=== PATIENT | female | born 1960 | race Caucasian/White ===

== ENCOUNTER 2021-12-10 13:36 | Emergency (ER) | payer MEDICARE, SELFPAY | END 2021-12-10 14:20 | disposition left against medical advice (07) | PROVIDERS: Emergency Provider Registered Nurse; PCP Family Medicine | DX: Z53.21 Procedure and treatment not carried out due to patient leaving prior to being seen by health care provider (principal) | CPT/HCPCS: 99199 ==

== ENCOUNTER 2021-12-14 12:35 | Emergency (ER) | payer MEDICARE, SELFPAY ==
[2021-12-14 12:40] VITALS: BP 145/68; PULSE 115; RESP 20; TEMP 36.8; O2SAT 96
--- NOTE | 2021-12-14 13:01 | ED.URI ---
HPI - URI/Sore Throat General Chief Complaint: Upper Respiratory Infection Stated Complaint: needs breathing treatment Time Seen by Provider: 12/14/21 13:02 Source: patient Mode of arrival: ambulatory Limitations: no limitations History of Present Illness HPI Narrative: Ms. Crump is a 61-year-old female patient presenting to the clinic today with complaints of chest congestion. She reports she was diagnosed with RSV on December 05, 2021. She reports over the last day or 2 she has become more short of breath with chest congestion. She does have a history of COPD. States that her PCP sent her in a prescription for some prednisone 2 days ago and she has been taking this but does not feel as though she can get the mucus up and is requesting a nebulizer treatment in the office today. Related Data Home Medications Medication Instructions Recorded Confirmed albuterol sulfate 90 mcg/actuation inhalation 12/14/21 aerosol inhaler alprazolam 0.25 mg tablet mg 12/14/21 fluticasone fur. 100 mcg-umeclid inhalation 12/14/21 62.5 mcg-vilant 25 mcg inhalat.powder (Trelegy Ellipta) hydrocodone 7.5 mg-acetaminophen tablet 12/14/21 325 mg tablet metformin 1,000 mg tablet mg 12/14/21 montelukast 10 mg tablet mg 12/14/21 prednisone 20 mg tablet mg 12/14/21 trazodone 50 mg tablet mg 12/14/21 Allergies Allergy/AdvReac Type Severity Reaction Status Date / Time tetracycline Allergy Intermediate Unknown Verified 12/14/21 13:06 codeine Allergy Unknown Nausea Verified 12/14/21 13:06 Review of Systems Review of Systems: Pertinent positives per HPI. Patient denies any fever, chills, rash, headache, visual changes, dizziness, sore throat, shortness of breath, chest pain, palpitations, nausea, vomiting, diarrhea, constipation, abdominal pain, or any urinary issues. PMFSH Comments At the time of my signature, I reviewed and agree with the nursing past medical, surgical, social, and family history. There is no relevant family history pertinent to the patient complaint. Exam Narrative: General: Well-developed, well nourished, in no apparent distress Head: Normocephalic, atraumatic Eyes: Pupils equally round and reactive to light bilaterally, EOM intact, sclera and conjunctive clear, no discharge, lids normal Ears: TMs intact and clear, ear canals clear, no drainage, grossly hearing normal. Nose: Nares patent, no discharge, no inflammation, no sinus tenderness. Mouth: Oropharynx without lesions or masses, good dentition, MMM. Neck: Supple, trachea midline, no enlargement of anterior or posterior cervical nodes, no thyroid masses or goiter palpable. Cardio: Regular rate and rhythm, s1 and s2 normal, no murmur appreciated. Resp: Lung sounds diminished with expiratory wheezing, no rhonchi, rales, or rubs Course Course Emergency Course: Portions of this record may have been created with voice recognition software. Level of Care: Express Care Visit Vital Signs Vital signs: Vital Signs Temperature 36.8 C 12/14/21 12:40 Pulse Rate 115 H 12/14/21 12:40 Respiratory Rate 20 12/14/21 12:40 Blood Pressure 145/68 H 12/14/21 12:40 Pulse Oximetry 96 12/14/21 12:40 Oxygen Delivery Room Air 12/14/21 12:40 Temperature 36.8 C 12/14/21 12:40 Pulse Rate 115 H 12/14/21 12:40 Respiratory Rate 20 12/14/21 12:40 Blood Pressure 145/68 H 12/14/21 12:40 Pulse Oximetry 96 12/14/21 12:40 Oxygen Delivery Room Air 12/14/21 12:40 Vital signs reviewed MDM - URI/Sore Throat MDM Narrative Medical decision making narrative: At the time of visit patient was resting comfortably in the chair. She is wearing O2 at 2 L per nasal cannula. She is able to speak in full sentences. She has a nonproductive cough with expiratory wheezing and diminished breath sounds. Offered chest x-ray and patient declines at this time. She only is requesting a breathing treatment in the clinic today. Handheld neb treatment di
[2021-12-14] MEDS: IPRATROPIUM BR 0.02% INH SOLN 0.5 MG/2.5 ML VIAL INHALATION (13:25)
[2021-12-14] MEDS: ALBUTEROL SULFATE NEB 2.5 MG/3 ML INH INHALATION (13:25)
== END 2021-12-14 14:10 | disposition home or self-care (01) ==
PROVIDERS: Emergency Provider Nurse Practitioner Family; PCP Family Medicine
DX: J44.1 Chronic obstructive pulmonary disease with (acute) exacerbation (principal); B97.4 Respiratory syncytial virus as the cause of diseases classified elsewhere; G47.30 Sleep apnea, unspecified; E11.9 Type 2 diabetes mellitus without complications; L40.9 Psoriasis, unspecified; N80.9 Endometriosis, unspecified; F41.9 Anxiety disorder, unspecified; F32.A Depression, unspecified
CPT/HCPCS: 99213; G0463

== ENCOUNTER 2022-01-09 11:53 | Emergency (ER) | payer MEDICARE, SELFPAY ==
[2022-01-09 11:59] VITALS: BP 140/64; PULSE 101; RESP 20; TEMP 36.6; O2SAT 91
--- NOTE | 2022-01-09 12:42 | ED.GENADULT ---
HPI - General Adult General Chief complaint: Upper Respiratory Infection Stated complaint: cough fever sore throat Source: patient Mode of arrival: ambulatory Limitations: no limitations History of Present Illness HPI narrative: Patient presents for evaluation of sore throat and cough. She indicates she was hospitalized at [facility] for RSV and pneumonia recently. She still on steroids following that hospitalization. She completed Levaquin therapy. No fever, chills, nausea, vomiting, diarrhea. She has an underlying history of COPD, emphysema, diabetes. Blood sugars have been running high while on steroids. She continues to smoke approximately 1 pack per day and also smokes marijuana. She reports some shortness of breath, unchanged from her baseline. She is also having several family members evaluated for similar symptoms here today. Her family member was seen and evaluated here last night was diagnosed with strep and influenza. Related Data Home Medications Medication Instructions Recorded Confirmed albuterol sulfate 90 mcg/actuation 1 puff inhalation Q4-6H 12/14/21 01/09/22 aerosol inhaler fluticasone fur. 100 mcg-umeclid 1 inh inhalation DAILY 12/14/21 01/09/22 62.5 mcg-vilant 25 mcg inhalat.powder (Trelegy Ellipta) metformin 1,000 mg tablet 1,000 mg PO DAILY 12/14/21 01/09/22 montelukast 10 mg tablet 10 mg PO DAILY 12/14/21 01/09/22 trazodone 50 mg tablet 50 mg PO QHS 12/14/21 01/09/22 ipratropium 0.5 mg-albuterol 3 mg 3 ml inhalation QID PRN Shortness 01/09/22 01/09/22 (2.5 mg base)/3 mL nebulization Of Breath soln prednisone 10 mg tablet 10 mg PO DAILY 01/09/22 01/09/22 Allergies Allergy/AdvReac Type Severity Reaction Status Date / Time tetracycline Allergy Intermediate Unknown Verified 01/09/22 12:24 codeine AdvReac Unknown Nausea Verified 01/09/22 12:24 Review of Systems Review of Systems: CONSTITUTIONAL: Denies fever, chills, or sweats. EYES: Denies visual changes, redness, or discharge. ENT: Reports sore throat. Denies rhinorrhea, congestion, or otalgia. CARDIOVASCULAR: Denies chest pain, palpitations, or edema. RESPIRATORY: Reports cough and shortness of breath. GASTROINTESTINAL: Denies abdominal pain, nausea, vomiting, or diarrhea. GENITOURINARY: Denies dysuria or hematuria. SKIN: Denies rash or itching. MUSCULOSKELETAL: Denies back pain, joint pain, or myalgia. NEUROLOGIC: Denies headache, numbness, dizziness, or weakness. PSYCHIATRIC: Denies anxiety or depression. PMFSH Past Medical History Medical History COPD (chronic obstructive pulmonary disease) Diabetes Surgical History Surgical History No pertinent past surgical history Family History Family History Mother Family history non-contributory Social History Social History Smoking packs per day: 1 Smoking cigarettes per day: 20.0 Smoking status: Current every day smoker Substance use: current Substance use type: marijuana Living arrangements: with family Gender identity (if verbalized by the patient): Female Spiritual care concerns: No Exam Narrative: GENERAL: Well-appearing, well-nourished, and in no acute distress. HEAD: Normocephalic, atraumatic. EYES: PERRLA and EOMI. ENT: Nares clear, no rhinorrhea or epistaxis. Mucous membranes moist. Oropharynx without tonsillar hypertrophy exudate or other lesions. Bilateral TMs pearly haynes nonbulging NECK: Supple. No adenopathy or masses. No carotid bruits or JVD CHEST: Clear to auscultation. No respiratory distress. No wheezes rales or rhonchi HEART: Regular rate and rhythm. No murmur heard. Normal peripheral pulses. ABDOMEN: Soft, nontender, nondistended, normal active bowel sounds. EXTREMITIES: Normal range of m
== END 2022-01-09 12:55 | disposition home or self-care (01) ==
PROVIDERS: Emergency Provider Nurse Practitioner; PCP Family Medicine
DX: J10.1 Influenza due to other identified influenza virus with other respiratory manifestations (principal); F17.210 Nicotine dependence, cigarettes, uncomplicated; F12.90 Cannabis use, unspecified, uncomplicated; J44.9 Chronic obstructive pulmonary disease, unspecified; E11.9 Type 2 diabetes mellitus without complications
CPT/HCPCS: 87081; 87804; 87880; 99213; G0463